=== PATIENT | female | born 1940 | race Caucasian/White ===

== ENCOUNTER 2022-09-18 13:43 | Emergency (ER) | payer MEDICARE ==
[2022-09-18 14:02] VITALS: BP 162/86; PULSE 73; RESP 18; TEMP 97.4
[2022-09-18] MEDS ORDERED: LIDOCAINE 5% PATCH TOPICAL STA (16:40)
--- NOTE | 2022-09-18 16:58 | ED ---
General Adult HPI - General Chief complaint: Fall Stated complaint: Fall,Hip injury Time Seen by Provider: 09/18/22 16:16 Source: patient Mode of arrival: ambulatory Limitations: no limitations - History of Present Illness Initial comments: Dictation was produced using [employer] dictation software. please excuse any grammatical, word or spelling errors. Chief Complaint: 82-year-old female presents emergency Department with right- sided lower back pain History of Present Illness: 82-year-old female patient presents emergency Department with lower right back pain. Patient states that 3 days ago she was trying to move a chair when she lost her balance. She states that she fell sideways and struck the right lower back on the corner of hard object. Patient states that she did not seek any medical attention sooner because she thought that the pain would just go away. Patient denies any hip pain. Denies any difficulty ambulating. She doesn't take any thinners. Patient denies any other symptoms at this time. Denies any loss of consciousness during the time of the event. The ROS documented in this emergency department record has been reviewed and confirmed by me. Those systems with pertinent positive or negative responses have been documented in the HPI. All other systems are other negative and/or noncontributory. PHYSICAL EXAM: General Impression: Alert and oriented x3, not in acute distress HEENT: Normocephalic atraumatic, extra-ocular movements intact, pupils equal and reactive to light bilaterally, mucous membranes moist. Cardiovascular: Heart regular rate and rhythm Chest: Able to complete full sentences, no retractions, no tachypnea Abdomen: abdomen soft, non-tender, non-distended, no organomegaly Musculoskeletal: Pulses present and equal in all extremities, no peripheral edema, ecchymoses without any swelling over the right lower back Motor: no focal deficits noted Neurological: CN II-XII grossly intact, no focal motor or sensory deficits noted Skin: Intact with no visualized rashes Psych: Normal affect and mood ED course: 82-year-old female presents to the emergency department for right lower back contusion. Signs upon arrival are within acceptable limits. Patient given by a patch. Hip x-ray lumbar spine x-ray unremarkable. Patient reevaluated at bedside at 5:45 PM found to be in stable medical condition. Patient be discharged. Given starter pack for tramadol. - Related Data Allergies Allergy/AdvReac Type Severity Reaction Status Date / Time No Known Allergies Allergy Verified 09/18/22 14:02 Review of Systems ROS Statement: Those systems with pertinent positive or pertinent negative responses have been documented in the HPI. ROS Other: All systems not noted in ROS Statement are negative. Past Medical History Past Medical History: No Reported History History of Any Multi-Drug Resistant Organisms: None Reported Past Surgical History: Orthopedic Surgery Past Psychological History: No Psychological Hx Reported Smoking Status: Never smoker Past Alcohol Use History: None Reported Past Drug Use History: None Reported General Exam Limitations: no limitations Course Vital Signs 09/18/22 14:00 Temperature 97.4 F L Pulse Rate 73 Respiratory 18 Rate Blood Pressure 162/86 O2 Sat by Pulse 96 Oximetry Disposition Clinical Impression: Back contusion Disposition: HOME SELF-CARE Condition: Good Instructions (If sedation given, give patient instructions): Fall Prevention for Older Adults (ED) Is patient prescribed a controlled substance at d/c from ED?: No Referrals: None,Stated [REFERRING] - 1-2 days Time of Disposition: 17:48
--- NOTE | 2022-09-18 17:26 | XR ---
EXAMINATION TYPE: XR lumbar spine 2 or 3V DATE OF EXAM: 09/18/2022 COMPARISON: NONE HISTORY: Back pain TECHNIQUE: 3 views FINDINGS: The lumbar vertebrae have fairly normal alignment. There is a mild L4-5 subluxation of 5 mm . There is mild disc space narrowing at L4-5 and L5-S1. No significant compression deformity. Posteri or elements are intact. Sacroiliac joints are intact. IMPRESSION: No acute bony abnormality. There is degenerative first-degree L4-5 spondylolisthesis.
--- NOTE | 2022-09-18 17:28 | XR ---
EXAMINATION TYPE: XR Hip Complete RT DATE OF EXAM: 09/18/2022 COMPARISON: NONE HISTORY: Back pain Hip pain TECHNIQUE: 2 views FINDINGS: There is acetabular spurring. Proximal femur is intact. No hip fracture. Sacroiliac joint is intact. IMPRESSION: Mild osteoarthritis. No fracture seen.
[2022-09-18] MEDS ORDERED: traMADol 50 MG STARTER PACK 3 TAB BTL PO STA (17:48)
== END 2022-09-18 18:14 | disposition home or self-care (01) ==
LOC: EC 13:43
DX: S30.0XXA Contusion of lower back and pelvis, initial encounter (principal); W01.198A Fall on same level from slipping, tripping and stumbling with subsequent striking against other object, initial encounter
CPT/HCPCS: 72100; 73502; 99283

== ENCOUNTER 2024-11-25 08:03 | Emergency (ER) | payer MEDICARE ==
--- NOTE | 2024-11-25 08:51 | ED ---
Fall HPI <NithinCelso - Last Filed: 11/25/24 09:52> - General Source: patient, RN notes reviewed Mode of arrival: EMS Limitations: no limitations <Vishnu Lerner - Last Filed: 11/25/24 10:27> - General Chief Complaint: Fall Stated Complaint: fall Time Seen by Provider: 11/25/24 08:04 - History of Present Illness Initial Comments: 84-year-old female presents emergency department with chief complaint of fall. She states she slipped on the floor falling into a small table. She injured her left shoulder she had no head injury no loss conscious. Patient has no other complaints other than left shoulder pain but she has very limited range of motion. (Vishnu Lerner) - Related Data Home Medications Medication Instructions Recorded Confirmed Ipratropium [place] 0.06%Nasal 2 spray EA NOSTRIL BID 11/25/24 11/25/24 [Atrovent Nasal 0.06%] Allergies Allergy/AdvReac Type Severity Reaction Status Date / Time No Known Allergies Allergy Verified 11/25/24 10:09 Review of Systems ROS Other: All systems not noted in ROS Statement are negative. <Celso Weller - Last Filed: 11/25/24 09:52> ROS Other: All systems not noted in ROS Statement are negative. <Vishnu Lerner - Last Filed: 11/25/24 10:27> ROS Statement: Those systems with pertinent positive or pertinent negative responses have been documented in the HPI. Past Medical History Past Medical History: No Reported History History of Any Multi-Drug Resistant Organisms: None Reported Past Surgical History: Orthopedic Surgery Past Psychological History: No Psychological Hx Reported Smoking Status: Never smoker Past Alcohol Use History: None Reported Past Drug Use History: None Reported <Vishnu Lerner - Last Filed: 11/25/24 10:27> General Exam Limitations: no limitations General appearance: alert, in no apparent distress Head exam: Present: atraumatic, normocephalic, normal inspection Eye exam: Present: normal appearance, PERRL, EOMI. Absent: scleral icterus, conjunctival injection, periorbital swelling ENT exam: Present: normal exam, mucous membranes moist Neck exam: Present: normal inspection, full ROM. Absent: tenderness, meningismus, lymphadenopathy Respiratory exam: Present: normal lung sounds bilaterally. Absent: respiratory distress, wheezes, rales, rhonchi, stridor Cardiovascular Exam: Present: regular rate, normal rhythm, normal heart sounds. Absent: systolic murmur, diastolic murmur, rubs, gallop, clicks Extremities exam: Present: other (left Shoulder diffuse tenderness, limited range of motion rest contact) <Vishnu Lerner - Last Filed: 11/25/24 10:27> Course Vital Signs 11/25/24 11/25/24 11/25/24 08:10 09:34 09:35 Temperature 97.7 F Pulse Rate 70 70 70 Respiratory 16 18 16 Rate Blood Pressure 123/70 150/80 125/72 O2 Sat by Pulse 92 L 96 94 L Oximetry 11/25/24 11/25/24 11/25/24 09:40 09:45 09:50 Temperature Pulse Rate 73 74 70 Respiratory 16 14 16 Rate Blood Pressure 123/72 123/70 122/80 O2 Sat by Pulse 94 L 93 L 98 Oximetry 11/25/24 10:00 Temperature Pulse Rate 67 Respiratory 18 Rate Blood Pressure 145/88 O2 Sat by Pulse 95 Oximetry Procedures - Procedural Sedation *Procedural Sedation Start Time: 09:34 *Procedural Sedation Stop Time: 09:50 *Risks,benefits, and alternative therapies discussed?: Yes *Patient indicates understanding of risk/benefit discussion?: Yes *Indications: fracture/dislocation reduction *Previous Adverse Reaction to Anesthesia/Sedation?: No * Testing Complete?: No Reason Test Not Complete:: Age > 60 *ASA Class: I *Mallampati Airway Score: 2 *Time of Last PO Intake: 23:00 Preparation: product safety specialist applied, pulse oximeter, capnometry used, supplemental O2 applied, suction/airway equipment at bedside, IV secured Ketamine: IV Ketamine Dose: 30 IV Propofol Dose (mgs): 30 Complications: none Patient Tolerated Procedure: well <Celso Weller - Last Filed: 11/25/24 09:52> - Orthopedic Joint Reduction Joint #1 Consent Obtained: written consent Side: left Joint Reduction Location: shoulder Analgesia: procedural sedation Shoulder Technique Used (if applicable): traction/counter-traction Post-Reduction Neuro Exam: intact Post-Reduction Vascular Exam: intact Post Reduction X-Ray Obtained: Yes Post Reduction X-Ray Results: reduced Splint Applied: Yes Patient Tolerated Procedure: well, no complications <Vishnu Lerner - Last Filed: 11/25/24 10:27> Medical Decision Making <Vishnu Lerner M - Last Filed: 11/25/24 10:27> - Medical Decision Making Was pt. sent in by a medical professional or institution ([facility], HEALTH ECONOMIST, urgent care, hospital, or half-way...) When possible be specific @ -No Did you speak to anyone other than the patient for history (EMS, parent, family, police, friend...)? What history was obtained from this source @ -No Did you review nursing and triage notes (agree or disagree)? Why? @ -I reviewed and agree with nursing and triage notes Were old charts reviewed (outside hosp., previous admission, EMS record, old EKG, old radiological studies, urgent care reports/EKG's, half-way records)? Report findings @ -No old charts were reviewed Differential Diagnosis (chest pain, altered mental status, abdominal pain women, abdominal pain men, vaginal bleeding, weakness, fever, dyspnea, syncope, h eadache, dizziness, GI bleed, back pain, seizure, CVA, palpatations, mental health, musculoskeletal)? @ -Humerus fracture, shoulder dislocation EKG interpreted by me (3pts min.). @ -None X-rays interpreted by me (1pt min.). @ -X-ray left shoulder showing dislocation with possible avulsion type fracture X-ray left shoulder Limited postreduction noted CT interpreted by me (1pt min.). @ -None done U/S interpreted by me (1pt. min.). @ -None done What testing was considered but not performed or refused? (CT, X-rays, U/S, labs)? Why? @ -None What meds were considered but not given or refused? Why? @ -None Did you discuss the management of the patient with other professionals (professionals i.e. [facility], HEALTH ECONOMIST, lab, RT, psych nurse, social insurance adviser, community health program representative, teacher, civil preparedness officer, bilingual case manager)? Give summary @ -No Was smoking cessation discussed for >3mins.? @ -No Was critical care preformed (if so, how long)? @ -No Were there social determinants of health that impacted care today? How? (Homeles sness, low income, unemployed, alcoholism, drug addiction, transportation, low edu. Level, literacy, decrease access to med. care, custodial, rehab)? @ -No Was there de-escalation of care discussed even if they declined (Discuss DNR or withdrawal of care, Hospice)? DNR status @ -No What co-morbidities impacted this encounter? (DM, HTN, Smoking, COPD, CAD, Cancer, CVA, ARF, Chemo, Hep., AIDS, mental health diagnosis, sleep apnea, morbid obesity)? @ -None Was patient admitted / discharged? Hospital course, mention meds given and route, prescriptions, significant lab abnormalities, going to OR and other pertinent info. @ -Discharged patient presented for a fall. Patient has left shoulder dislocation with avulsion type fracture this was reduced patient placed in a sling will follow-up with orthopedics. Undiagnosed new problem with uncertain prognosis? @ -No Drug Therapy requiring intensive monitoring for toxicity (Heparin, Nitro, Insulin, Cardizem)? @ -No Were any procedures done? @ -Procedural sedation with shoulder reduction Diagnosis/symptom? @ -Left shoulder dislocation, humeral fracture Acute, or Chronic, or Acute on Chronic? @ -Acute Uncomplicated (without systemic symptoms) or Complicated (systemic symptoms)? @ -Uncomplicated Side effects of treatment? @ -No Exacerbation, Progression, or Severe Exacerbation? @ -No Poses a threat to life or bodily function? How? (Chest pain, [place], [place], pneumonia, PE, COPD, DKA, ARF, appy, cholecystitis, CVA, Diverticulitis, Homicidal, Suicidal, threat to staff... and all critical care pts) @ -No (Vishnu Lerner) Disposition <Celso Weller - Last Filed: 11/25/24 09:52> Is patient prescribed a controlled substance at d/c from ED?: No Time of Disposition: 10:27 <Vishnu Lerner - Last Filed: 11/25/24 10:27> Clinical Impression: Fall, Dislocation of shoulder, left, closed, Humerus fracture Disposition: HOME SELF-CARE Instructions (If sedation given, give patient instructions): Moderate Sedation (ED) Additional Instructions: Please return to the Emergency Department if symptoms worsen or any other concerns. Referrals: Nonstaff,Physician [Primary Care Provider] - 1-2 days Ezio Olson DO [Doctor of Osteopathic Medicine] - 1-2 days
--- NOTE | 2024-11-25 09:03 | XR ---
EXAMINATION TYPE: XR shoulder 2 views LT DATE OF EXAM: 11/25/2024 COMPARISON: NONE CLINICAL INDICATION: Female, 84 years old with history of pain; TECHNIQUE: 2 views FINDINGS: There is an anterior subglenoid shoulder dislocation. A 1.8 cm curvilinear ossific density along the lateral inferior aspect of the glenoid is also present. AC joint appears congruent and inta ct. There are some interstitial changes within the lungs and patchy left basilar opacity. IMPRESSION: 1. Anterior subglenoid shoulder dislocation. 2. A 1.8 cm curvilinear density adjacent to the lower glenoid could represent a bone Bankart fragment versus fragment from the humeral head impaction injury. 3. Diffuse interstitial changes in the lungs with patchy left basilar opacity. Correlate for possible etiologies including mild CHF or underlying pneumonitis. [facility], , 11/25/2024 9:01 AM
[2024-11-25] MEDS: KETAMINE 10 MG/ML 20 ML VIAL IV ONE (09:34)
[2024-11-25] MEDS: PROPOFOL 10 MG/ML 20 ML VIAL IV ONE (09:34)
--- NOTE | 2024-11-25 09:55 | XR ---
EXAMINATION TYPE: XR shoulder limited LT DATE OF EXAM: 11/25/2024 COMPARISON: NONE CLINICAL INDICATION: Female, 84 years old with pain, history of Postreduction; TECHNIQUE: AP view FINDINGS: Interval satisfactory reduction of the glenohumeral joint. Curvilinear ossific density now located along the lateral aspect of the humeral head. AC joint appears intact. Interstitial changes t hroughout the left lung and patchy left basilar opacity persists. IMPRESSION: 1. Satisfactory reduction of the glenohumeral joint. 2. Curvilinear ossific density located laterally, likely impaction fracture fragment from the humeral head. 3. Interstitial changes in the left lung along with patchy left basilar opacity-infiltrate persists. Correlate for any infectious signs/symptoms. [facility], Workstation: [id number], 11/25/2024 9:52 AM
[2024-11-25 10:09] VITALS: RESP 18
[2024-11-25] MEDS: KETOROLAC 15 MG/ML 1 ML VIAL IVP STA (10:30)
[2024-11-25] MEDS: ACET/COD 300 MG/30 MG STARTER PACK 6 TAB BTL PO STA (10:37)
[2024-11-25 10:41] VITALS: BP 156/84; PULSE 69; TEMP 97.8
== END 2024-11-25 10:52 | disposition home or self-care (01) ==
LOC: EC 08:03
DX: S42.302A Unspecified fracture of shaft of humerus, left arm, initial encounter for closed fracture (principal); S43.005A Unspecified dislocation of left shoulder joint, initial encounter; W01.190A Fall on same level from slipping, tripping and stumbling with subsequent striking against furniture, initial encounter
CPT/HCPCS: 73030; 73020; 23650; 99152; 99284; 96374; L3670; J1885; J2704

== ENCOUNTER → 2025-04-15 | Outpatient (CLI) | payer MEDICARE ==
[2025-04-15 18:13] LABS: Basophils # (A) 0.04 X 10*3/uL (0.00-0.10); Basophils % (A) 0.8 %; Eosinophils # (A) 0.27 X 10*3/uL (0.04-0.35); Eosinophils % (A) 5.4 %; HCT 42.5 % (37.2-46.3); HGB 13.4 g/dL (12.0-15.0); Lymphocytes # (A) 1.47 X 10*3/uL (0.90-5.00); Lymphocytes % (A) 29.5 %; MCH 28.3 pg (27.0-32.0); MCHC 31.5 g/dL (32.0-37.0); MCV 89.9 FL (80.0-97.0); Monocytes # (A) 0.45 X 10*3/uL (0.20-1.00); NRBC Per 100 WBC 0 X 10*3/uL (0.00-0.01); Neutrophils # (A) 2.74 X 10*3/uL (1.80-7.70); Neutrophils % (A) 55.1 %; Platelet Count 194 X 10*3/uL (140-440); RBC 4.73 X 10*6/uL (4.10-5.20); RDW 13.7 % (11.5-14.5); WBC 4.98 X 10*3/uL (4.50-10.00)
[2025-04-15 19:50] LABS: VLDL Calculation 16.14 mg/dL (5.00-40.00)
[2025-04-15 20:09] LABS: ALT 14 U/L (8-44); AST 19 U/L (13-35); Albumin/Globulin Ratio 1.74 Ratio (1.60-3.17); Alkaline Phosphatase 89 U/L (41-126); BUN/Creat Ratio 34.71 Ratio (12.00-20.00); Blood Urea Nitrogen 24.3 mg/dL (9.0-27.0); Calcium 9.6 mg/dL (8.7-10.3); Carbon Dioxide 23.2 mmol/L (21.6-31.8); Chloride 106 mmol/L (96-109); Chol/HDL Ratio 2.91 Ratio; Globulin 2.3 g/dL (1.6-3.3); Glucose 108 mg/dL (70-110); LDL Cholesterol,Calculated 100.7 mg/dL (0.0-131.0); Potassium 4.6 mmol/L (3.5-5.5); Sodium 141 mmol/L (135-145); Total Bilirubin 0.6 mg/dL (0.3-1.2); Total Protein 6.3 g/dL (6.2-8.2)
== END | disposition home or self-care (01) ==
LOC: LABWHC1 12:36
PROVIDERS: ATTEND Family Medicine
DX: Z76.89 Persons encountering health services in other specified circumstances (principal)
CPT/HCPCS: 36415; 80053; 80061; 82306; 84443; 85025

== ENCOUNTER → 2025-05-15 | Outpatient (CLI) | payer MEDICARE ==
--- NOTE | 2025-05-18 08:05 | BD ---
EXAMINATION TYPE: Axial Bone Density DATE OF EXAM: 05/15/2025 CLINICAL HISTORY: 85 years old Female. ICD-10 CODE: [id number] OSTEOPOROSIS SCREENING , Additional Histo ry: Height: 5 ft Weight: 134 FRAX RISK QUESTIONS: Alcohol (3 or more units per day): no Family History (Parent hip fracture): no Glucocorticoids (More than 3mos): no (Ex: prednisone, prednisolone, methylprednisolone, dexamethasone, and hydrocortisone). History of Fracture in Adulthood: yes Secondary Osteoporosis: 1. Type 1 Diabetes: no 2. Hyperthyroidism: no 3. Menopause before 45: no 4. Malnutrition: no 5. Chronic liver disease: no Rheumatoid Arthritis: no Current Tobacco Use: no RISK FACTORS HISTORY OF: Surgery to Spine/Hip(right/left)/Wrist (right/left): no MEDICATIONS: Thyroid Medications: none Osteoporosis Medications: none EXAM MEASUREMENTS: Bone mineral densitometry was performed using the [employer] System. Bone mineral density as measured about the Lumbar spine is: ----- L1-L4(G/cm2): 0.780 T Score Values are as follows: ----- L1: -2.7 ----- L2: -3.6 ----- L3: -3.4 ----- L4: -3.7 ----- L1-L4: -3.3 Z Score Values are as follows: ----- L1: -0.6 ----- L2: -1.5 ----- L3: -1.3 ----- L4: -1.6 ----- L1-L4: -1.3 baseline Bone mineral density about the R hip (g/cm2): 0.795 Bone mineral density about the L hip (g/cm2): 0.703 T Score values are as follows: -----R Neck: -1.7 -----L Neck: -2.4 -----R Total: -1.2 -----L Total: -1.8 Z Score values are as follows: -----R Neck: 0.8 -----L Neck: 0.1 -----R Total: 1.2 -----L Total: 0.7 baseline FRAX%s: The graph provided illustrates a 24.8 % chance for a major osteoporotic fx and a 8.3 % chance for the hips probability for fx in 10 years time. IMPRESSION: Osteoporosis (T Score less than -2.5). There is increased fracture risk and therapy is usually indicated based on age. Re-Screen 1-2 years. NOTE: T-SCORE=SD OF THE YOUNG ADULT MEAN. [facility], , 05/18/2025 8:03 AM
== END | disposition home or self-care (01) ==
LOC: RADBDWWP 13:48
PROVIDERS: ATTEND Family Medicine
DX: Z13.820 Encounter for screening for osteoporosis (principal); M81.0 Age-related osteoporosis without current pathological fracture
CPT/HCPCS: 77080